=== PATIENT | male | born 1990 | race Hispanic/Latino ===

== ENCOUNTER 2018-06-07 09:57 | Day surgery (SDC) | payer OTHER ==
[2018-06-07] MEDS ORDERED: MIDAZOLAM INJ 2 MG/2 ML VIAL (J2250) As Ordered (10:29)
[2018-06-07] MEDS ORDERED: LIDOCAINE 2% INJ 100 MG/5 ML SDV (FOR ANES.) As Ordered (10:29)
[2018-06-07] MEDS ORDERED: ROCURONIUM BROMIDE 50 MG/5 ML VIAL As Ordered ×2 (10:29→12:22)
[2018-06-07] MEDS ORDERED: PROPOFOL 200 MG/20 ML VIAL As Ordered (10:29)
[2018-06-07] MEDS ORDERED: fentaNYL 100 MCG/2 ML INJECTION (J3010) As Ordered (10:29)
[2018-06-07] MEDS ORDERED: dexameTHASONE 4 MG/ML 1ML VIAL (J1100) As Ordered (10:37)
[2018-06-07] MEDS ORDERED: HYDROmorphone HCL 2 MG/ML 1ML VIAL (J1170) As Ordered (10:38)
[2018-06-07] MEDS: LR 1,000 ML IV ×2 (10:44→15:30)
[2018-06-07] MEDS: METHYLENE BLUE 0.5% (5MG/ML) 10 ML AMP (PROVAYBLUE)(Q9968 PER 1MG) As Ordered (11:05)
[2018-06-07] MEDS: CHLORHEXIDINE ORAL RINSE 0.12%/15ML 120ML BOTTLE As Ordered (11:51)
[2018-06-07] MEDS: dexameTHASONE 4 MG/ML 1ML VIAL (J1100) IV (11:58)
[2018-06-07] MEDS: OXYMETAZOLINE NASAL SPRAY (AFRIN) As Ordered (12:07)
[2018-06-07] MEDS ORDERED: PHENYLephrine HCL 500 MCG/5 ML (100MCG/ML) SYRINGE (J2370) As Ordered ×2 (13:50→13:51)
[2018-06-07] MEDS ORDERED: SUGAMMADEX SODIUM 500 MG/5 ML VIAL (BRIDION) As Ordered (14:46)
[2018-06-07] MEDS ORDERED: ONDANSETRON 4MG/2ML VIAL (J2405) As Ordered (14:47)
[2018-06-07] MEDS: LIDOCAINE 2% W/ EPINEPHRINE 1.7 ML DENTAL INJ As Ordered (14:56)
[2018-06-07] MEDS: MORPHINE 10 MG/ML 1ML VIAL (J2270) IV ×5 (15:32→15:52)
[2018-06-07] MEDS: fentaNYL 100 MCG/2 ML INJECTION (J3010) IV ×4 (15:57→16:22)
[2018-06-07] MEDS: ONDANSETRON 4MG/2ML VIAL (J2405) IV (15:57)
[2018-06-07] MEDS ORDERED: oxyCODONE 5MG TAB As Ordered (16:43)
[2018-06-07] MEDS ORDERED: PERCOCET 5MG/325MG TAB As Ordered (16:46)
[2018-06-07] MEDS: PERCOCET 5MG/325MG TAB PO (16:46)
== END 2018-06-07 15:00 | disposition home or self-care (01) ==
LOC: M OR 09:57 → M RR INP 15:09 → M OR 15:09 → M SDC 11:45
DX: M26.04 Mandibular hypoplasia (principal); M26.06 Microgenia
CPT/HCPCS: D7941